=== PATIENT | male | born 1995 | race Caucasian/White ===

== ENCOUNTER 2018-11-02 09:46 | Emergency (ER) | payer SELFPAY ==
[2018-11-02] MEDS ORDERED: Lactated Ringers 1,000 ML IV STA (10:06)
[2018-11-02] MEDS ORDERED: Sodium Chloride 0.9% 10 ML Syringe FLUSH PRN (10:06)
--- NOTE | 2018-11-02 10:24 | EDM.PDOC ---
ED HPI GENERAL MEDICAL PROBLEM - General Chief Complaint: Gastrointestinal Problem Stated Complaint: VOMITING Time Seen by Provider: 11/02/18 10:00 Source of Information: Reports: Patient History Limitations: Reports: No Limitations - History of Present Illness INITIAL COMMENTS - FREE TEXT/NARRATIVE: Patient comes into the emergency department with complaint of nausea, vomiting, and diarrhea. Patient states it started approximately yesterday after he used some hemp oil. This is a 4 cm use hand while he was trying to use it for anxiety. He noticed within an hour to bed he became violently ill. He does acknowledge that the flu has been runaround especially in his family his significant other has had it and his mother his had it. He is unsure if it is the flu or if it is a reaction to the hemp oil. Pt states he has thrown up at least 10 times since yesterday and and had a minimum of 10 watery diarrhea episodes. He has had cold sweats as well. He denies any chest pain, SOB, headache, or edema. Onset: Sudden Improves with: Reports: None Worsens with: Reports: None Associated Symptoms: Reports: Loss of Appetite, Malaise, Nausea/Vomiting - Related Data Allergies Allergy/AdvReac Type Severity Reaction Status Date / Time No Known Allergies Allergy Verified 11/02/18 10:15 Home Meds: Home Meds . [No Known Home Meds] 11/02/18 [History] ED ROS GENERAL - Review of Systems Review Of Systems: See Below Constitutional: Reports: Chills, Malaise, Fatigue, Night Sweats, Decreased Appetite HEENT: Reports: No Symptoms Respiratory: Reports: No Symptoms Cardiovascular: Reports: No Symptoms Endocrine: Reports: No Symptoms GI/Abdominal: Reports: Anorexia, Diarrhea, Decreased Appetite, Nausea, Vomiting : Reports: No Symptoms Musculoskeletal: Reports: No Symptoms Skin: Reports: No Symptoms Neurological: Reports: No Symptoms Psychiatric: Reports: No Symptoms Hematologic/Lymphatic: Reports: No Symptoms Immunologic: Reports: No Symptoms ED EXAM, GENERAL - Physical Exam Exam: See Below Exam Limited By: No Limitations General Appearance: Alert, WD/WN, No Apparent Distress Head: Atraumatic, Normocephalic Neck: Normal Inspection, Supple, Non-Tender Respiratory/Chest: No Respiratory Distress, Lungs Clear, Normal Breath Sounds, No Accessory Muscle Use, Chest Non-Tender Cardiovascular: Normal Peripheral Pulses, Regular Rate, Rhythm, No Edema Back Exam: Normal Inspection, Decreased Range of Motion Extremities: Normal Inspection, Normal Range of Motion, Non-Tender, Normal Capillary Refill Neurological: Alert, Oriented, Normal Gait Psychiatric: Normal Affect, Normal Mood Course - Vital Signs Last Recorded V/S: Last Vital Signs Temp 36.3 C 11/02/18 11:40 Pulse 86 11/02/18 11:40 Resp 16 11/02/18 11:40 BP 143/72 H 11/02/18 11:40 Pulse Ox 95 11/02/18 11:40 - Orders/Labs/Meds Orders: Active Orders 24 hr Category Date Time Status Sodium Chloride 0.9% [Saline Flush] Med 11/02/18 10:06 Active 10 ml FLUSH ASDIRECTED PRN Peripheral IV Insertion Adult [OM.PC] Stat Oth 11/02/18 10:06 Ordered Medication Orders Sodium Chloride (Saline Flush) 10 ml FLUSH ASDIRECTED PRN PRN Reason: Keep Vein Open Last Admin: 11/02/18 10:26 Dose: 10 ml Labs: Laboratory Tests 11/02/18 11/02/18 Range/Units 10:23 10:23 WBC 11.7 H (4.0-10.0) x10^3/uL RBC 5.27 (4.5-6.0) x10^6/uL Hgb 16.0 (14.0-18.0) g/dL Hct 46.8 (40.0-52.0) % MCV 88.8 (78.0-93.0) fL MCH 30.4 (26.0-32.0) pg MCHC 34.2 (32.0-36.0) g/dL RDW Coeff of Juan 13.5 (10.0-15.0) % Plt Count 298 (130-400) x10^3/uL Neut % (Auto) 81.5 H (50.0-80.0) % Lymph % (Auto) 8.4 L (25.0-50.0) % Donley % (Auto) 9.6 (2.0-11.0) % Eos % (Auto) 0.3 (0.0-4.0) % Baso % (Auto) 0.2 (0.2-1.2) % Sodium 137 (136-145) mmol/L Potassium 3.9 (3.5-5.1) mmol/L Chloride 98 (98-107) mmol/L Carbon Dioxide 24 (21-32) mmol/L Anion Gap 18.9 (10-20) mmol/L BUN 21 H (7-18) mg/dL Creatinine 1.4 H (0.70-1.30) mg/dL Est Cr Clr Drug Dosing TNP Estimated GFR (MDRD) > 60 Glucose 126 H (74-106) mg/dL Calcium 10.1 (8.5-10.1) mg/dL Corrected Calcium 9.46 (8.5-10.1) mg/dL Total Bilirubin 1.1 H (0.2-1.0) mg/dL AST 26 (15-37) U/L ALT 68 H (16-63) U/L Alkaline Phosphatase 97 (46-116) U/L Total Protein 9.1 H (6.4-8.2) g/dL Albumin 4.8 (3.4-5.0) g/dL Globulin 4.3 Albumin/Globulin Ratio 1.12 Meds: Medications Generic Name Dose Route Start Last Admin Trade Name Freq PRN Reason Stop Dose Admin Sodium Chloride 10 ml 11/02/18 10:06 11/02/18 10:26 Saline Flush FLUSH 10 ml ASDIRECTED PRN Administration Keep Vein Open Discontinued Medications Generic Name Dose Route Start Last Admin Trade Name Freq PRN Reason Stop Dose Admin Lactated Ringer's 1,000 mls @ 1,000 mls/hr 11/02/18 10:06 11/02/18 10:26 Ringers, Lactated IV 11/02/18 11:05 1,000 mls/hr NOW STA Administration - Re-Assessments/Exams Free Text/Narrative Re-Assessment/Exam: 11/02/18 11:51 Pt feeling better and would like to go home and rest. Departure - Departure Time of Disposition: 11:46 Disposition: Home, Self-Care 01 Condition: Good Clinical Impression: Gastroenteritis - Discharge Information *PRESCRIPTION DRUG MONITORING PROGRAM REVIEWED*: Not Applicable *COPY OF PRESCRIPTION DRUG MONITORING REPORT IN PATIENT GENE: Not Applicable Instructions: Viral Gastroenteritis, Adult, [id number] Referrals: PCP,None [Primary Care Provider] - Forms: ED Department Discharge, ED Return to Work/School Form Additional Instructions: 1. rest 2. slowly increase your water intake. take small drinks frequent and increase base on tolerance if not throwing up for approximately 2 hours try small portions of bland food 3. Follow up as needed 4. It is unsure if the Hemp oil was the culprit of the violent vomiting but it is advisable to avoid using that in the future 5. Call with any questions or concerns - My Orders Last 24 Hours: My Active Orders 11/02/18 10:06 Sodium Chloride 0.9% [Saline Flush] 10 ml FLUSH ASDIRECTED PRN Peripheral IV Insertion Adult [OM.PC] Stat - Assessment/Plan Last 24 Hours: My Active Orders 11/02/18 10:06 Sodium Chloride 0.9% [Saline Flush] 10 ml FLUSH ASDIRECTED PRN Peripheral IV Insertion Adult [OM.PC] Stat Assessment:: 1. nausea/vomiting 2. Gastroenteritis Plan: 1. Labs completed in ER. results reviewed with the pt 2. IV hydration given in ER. 3. Zofran given in ER. 4. Pt is feeling better with IV hydration and zofran 5. Pt will be sent home with education on activity, diet, and follow up 6. All questions and concerns answered prior to discharge
[2018-11-02 10:52] LABS: CHLORIDE,CL 98 mmol/L (98-107); SODIUM,NA 137 mmol/L (136-145)
[2018-11-02 10:55] LABS: ANION GAP 18.9 mmol/L (10-20)
== END 2018-11-02 11:57 | disposition home or self-care (01) ==
LOC: VM.ED 09:46
DX: K52.9 Noninfective gastroenteritis and colitis, unspecified (principal)
CPT/HCPCS: 80053; 85025; 87804; 96365; 99284; J7120; 99283-GF